=== PATIENT | female | born 1970 | race Caucasian/White ===

== ENCOUNTER → 2020-07-29 | Outpatient (CLI) | payer OTHER ==
[2020-07-29 15:09] LABS: ABSOLUTE NEUTROPHILS 6.2 thou/uL (1.4-8.2); BASOPHILS 0.3 % (0.0-2.0); EOSINOPHILS 1.1 % (0.0-3.0); HEMATOCRIT 45.4 % (37.0-47.0); HEMOGLOBIN 15.8 gm/dL (12.0-15.0); LYMPHOCYTES 22.8 % (24.0-44.0); MCH 35.1 pg (26.0-34.0); MCHC 34.9 g/dL (28.0-37.0); MCV 100.5 fL (80.0-100.0); MONOCYTES 9.6 % (1.0-8.0); PLATELET COUNT 279 thou/uL (150-400); POLYS 66.2 % (36.0-66.0); RBC 4.52 mil/uL (4.20-5.00); RDW 13.5 % (10.5-14.5); WBC 9.4 thou/uL (4.0-11.0)
[2020-07-29 15:22] LABS: ALBUMIN 3.7 g/dL (3.4-5.0); CALCIUM 9.3 mg/dL (8.5-10.1); TOTAL BILIRUBIN 0.5 mg/dL (0.2-1.0); TOTAL PROTEIN 7.5 g/dL (6.4-8.2)
== END ==
LOC: LAB 14:18
PROVIDERS: ATTEND Nurse Practitioner
DX: I10 Essential (primary) hypertension (principal)

== ENCOUNTER → 2020-11-08 | Outpatient (CLI) | payer OTHER ==
[~2020-11-08] VITALS: Ht 160 cm; Wt 46.7 kg
[~2020-11-08] MED LIST: EFFEXOR XR37.5 MG PO; NORVASC10 MG PO; PROTONIX 20 MG20 MG PO
--- NOTE | 2020-11-10 16:06 | PATH ---
[facility] [address] [place] [address] PATHOLOGY RPT PROCEDURE Name: MALA GIFFORD Room #: REG MIESHA Worrell.#: [id number] Admission: 11/08/20 Date of : 68 Discharge: Report #: [id number] Path Case #: [id number] [facility] Accession Number: [id number] . 01 Material submitted: . esophagus - ESOPHAGEAL BX'S HX OF VALDOVINOS'S . 01 Clinical history: . EGD VALDOVINOS'S ESOPHAGUS . 02 Diagnosis: Gastroesophageal mucosa, esophagus history of Valdovinos's, endoscopic biopsy: - Gastric cardia-type mucosa with mild chronic inflammation and reactive changes. - Squamous mucosa with mild esophagitis. - Negative for intestinal metaplasia (Valdovinos's mucosa) or dysplasia. (IUV:brenda; 11/10/2020) QMS 11/10/2020 1405 Local . 02 Electronically signed: . Ciara Mantilla MD, Pathologist NPI- [id number] . 01 Gross description: . The specimen is submitted in formalin, labeled "Mala Gifford, esophageal biopsy". Received are 2 segments of pale briggs tissue ranging in size from 0.2 to 0.3 cm in maximum dimensions. The specimen is submitted in cassette A1. ([facility]; 11/09/2020) NRI/NRI 11/09/2020 [facility] Local . 02 Pathologist provided ICD-10: K29.50, K20.90 . 02 CPT . 623586 Specimen Comment: A courtesy copy of this report has been sent to [phone] Specimen Comment: [phone] Specimen Comment: Report sent to / DR JEFFRIES Performed at: [address] [id number] MD Daniel Franco MD Phone: [phone] Performed at: [address] [address] PATHOLOGY RPT PROCEDURE Name: MALA GIFFORD [facility] [id number] Admission: 11/08/20 Date of : 68 Discharge: Report #: [id number] Path Case #: [id number] [address] [id number] MD Ciara Mantilla MD Phone: [phone]
== END | disposition home or self-care (01) ==
LOC: GI 07:04
PROVIDERS: ATTEND Internal Medicine Gastroenterology
DX: K29.50 Unspecified chronic gastritis without bleeding (principal); K20.90 Esophagitis, unspecified without bleeding; I10 Essential (primary) hypertension; F31.9 Bipolar disorder, unspecified; F17.210 Nicotine dependence, cigarettes, uncomplicated; Z98.890 Other specified postprocedural states; Z79.899 Other long term (current) drug therapy; Z88.8 Allergy status to other drugs, medicaments and biological substances
CPT/HCPCS: 62110; 62900